=== PATIENT | female | born 1980 | race African-American/Black ===

== ENCOUNTER 2017-11-15 09:28 | Emergency (ER) | payer MEDICAID ==
[~2017-11-15] VITALS: Ht 180.3 cm; Wt 80.0 kg
[2017-11-15 09:59] VITALS: BP 141/76; PULSE 82; RESP 16; TEMP 98; O2SAT 100
[2017-11-15] MEDS ORDERED: DILA100C PO (10:05)
[2017-11-15] MEDS ORDERED: SODIUM CHLORIDE 0.9% FLUSH 10 ML FLUSH IVF PRN (10:30)
[2017-11-15 10:31] VITALS: RESP 16; O2SAT 99
--- NOTE | 2017-11-15 10:33 | PD ---
HPI Chief Complaint: Seizure Time Seen by Provider: 10:29 Travel History International Travel<30 days: No Contact w/Intl Traveler<30days: No Traveled to known affect area: No History of Present Illness HPI 37-year-old female patient with previous history of seizures, had ran out of her medications for a month and just started taking her Dilantin yesterday, was under Police Department custody when she states that she lost consciousness while sitting on the bench and had a seizure according to witnesses, had a second seizure while in the ambulance. Patient currently complains of a right- sided headache, thinks that she may have fallen down and hit her head during the seizure. She has not taken her medications this morning. She denies any other issues. Modifying Factors: None Associated Signs & Symptoms: Seizures Risk Factors: History of seizures PFSH Past Medical History Diabetes: Yes (NO MEDS) ?: Not Social History Tobacco Use: No Allergies-Medications (Allergen,Severity, Reaction): Coded Allergies: tramadol (Unverified Allergy, Mild, HIVES, 02/12/17) Reported Meds & Prescriptions Reported Meds & Active Scripts Active Reported Dilantin (Phenytoin Extended) 100 Mg Cap 100 Mg PO TID Review of Systems Except as stated in HPI: all other systems reviewed are Neg Physical Exam Narrative GENERAL: Well-developed young -[place] female patient currently in mild distress. Awake and oriented 3. SKIN: Focused skin assessment warm/dry. HEAD: Atraumatic. Normocephalic. EYES: Pupils equal and round. No scleral icterus. No injection or drainage. ENT: No nasal bleeding or discharge. Mucous membranes pink and moist. NECK: Trachea midline. No JVD. CARDIOVASCULAR: Regular rate and rhythm. No murmur appreciated. RESPIRATORY: No accessory muscle use. Clear to auscultation. Breath sounds equal bilaterally. GASTROINTESTINAL: Abdomen soft, non-tender, nondistended. Hepatic and splenic margins not palpable. MUSCULOSKELETAL: No obvious deformities. No clubbing. No cyanosis. No edema. NEUROLOGICAL: Awake and alert. No obvious cranial nerve deficits. Motor grossly within normal limits. Normal speech. PSYCHIATRIC: Appropriate mood and affect; insight and judgment normal. Data Data Last Documented VS Vital Signs Date Time Temp Pulse Resp B/P (MAP) Pulse Ox O2 Delivery O2 Flow Rate FiO2 11/15/17 10:31 16 99 Room Air 11/15/17 10:03 76 11/15/17 09:59 98.0 141/76 (97) Orders Orders Phenytoin (Dilantin) (11/15/17 10:19) Basic Metabolic Panel (Bmp) (11/15/17 10:19) Complete Blood Count With Diff (11/15/17 10:23) Basic Metabolic Panel (Bmp) (11/15/17 10:23) Phenytoin (Dilantin) (11/15/17 10:23) Blood Glucose (11/15/17 10:23) Ecg Monitoring (11/15/17 10:23) Iv Access Insert/Monitor (11/15/17 10:23) Oximetry (11/15/17 10:23) Sodium Chloride 0.9% Flush (Ns Flush) (11/15/17 10:30) Ed Urine Pregnancytest Poc (11/15/17 10:23) Ct Brain W/O Iv Contrast(Rout) (11/15/17 10:29) Urinalysis - C+S If Indicated (11/15/17 10:57) Drug Screen, Random Urine (11/15/17 10:57) Urine Culture (11/15/17 11:00) Phenytoin (Dilantin) (11/15/17 13:00) Acetaminophen (Tylenol) (11/15/17 13:15) Ed Discharge Order (11/15/17 13:02) Labs Laboratory Tests Test 11/15/17 10:15 11/15/17 11:00 White Blood Count 7.2 TH/MM3 Red Blood Count 4.82 MIL/MM3 Hemoglobin 11.0 GM/DL Hematocrit 35.6 % Mean Corpuscular Volume 73.9 FL Mean Corpuscular Hemoglobin 22.9 PG Mean Corpuscular Hemoglobin Concent 30.9 % Red Cell Distribution Width 19.6 % Platelet Count 223 TH/MM3 Mean Platelet Volume 7.8 FL Neutrophils (%) (Auto) 64.4 % Lymphocytes (%) (Auto) 27.3 % Monocytes (%) (Auto) 7.0 % Eosinophils (%) (Auto) 0.9 % Basophils (%) (Auto) 0.4 % Neutrophils # (Auto) 4.7 TH/MM3 Lymphocytes # (Auto) 2.0 TH/MM3 Monocytes # (Auto) 0.5 TH/MM3 Eosinophils # (Auto) 0.1 TH/MM3 Basophils # (Auto) 0.0 TH/MM3 CBC Comment DIFF FINAL Differential Comment Blood Urea Nitrogen 8 MG/DL Creatinine 0.66 MG/DL Random Glucose 86 MG/DL Calcium Level 8.4 MG/DL Sodium Level 140 MEQ/L Potassium Level 4.1 MEQ/L Chloride Level 110 MEQ/L Carbon Dioxide Level 18.6 MEQ/L Anion Gap 11 MEQ/L Estimat Glomerular Filtration Rate 123 ML/MIN Phenytoin (Dilantin) Level 0.8 MCG/ML Urine Color YELLOW Urine Turbidity HAZY Urine pH 7.5 Urine Specific [place] 1.016 Urine Protein 30 mg/dL Urine Glucose (UA) NEG mg/dL Urine Ketones NEG mg/dL Urine Occult Blood LARGE Urine Nitrite NEG Urine Bilirubin NEG Urine Urobilinogen LESS THAN 2.0 MG/DL Urine Leukocyte Esterase MOD Urine RBC /hpf Urine WBC /hpf Urine WBC Clumps MOD Urine Squamous Epithelial Cells 9 /hpf Urine Bacteria OCC /hpf Urine Mucus FEW /lpf Microscopic Urinalysis Comment CULTURE INDICATED Urine Opiates Screen NEG Urine Barbiturates Screen NEG Urine Amphetamines Screen NEG Urine Benzodiazepines Screen NEG Urine Cocaine Screen NEG Urine Cannabinoids Screen POS MDM Medical Decision Making Medical Screen Exam Complete: Yes Emergency Medical Condition: Yes Medical Record Reviewed: Yes Interpretation(s) Laboratory Tests Test 11/15/17 10:15 11/15/17 11:00 Hemoglobin 11.0 GM/DL (11.6-15.3) Mean Corpuscular Volume 73.9 FL (80.0-100.0) Mean Corpuscular Hemoglobin 22.9 PG (27.0-34.0) Mean Corpuscular Hemoglobin Concent 30.9 % (32.0-36.0) Red Cell Distribution Width 19.6 % (11.6-17.2) Calcium Level 8.4 MG/DL (8.5-10.1) Chloride Level 110 MEQ/L (98-107) Carbon Dioxide Level 18.6 MEQ/L (21.0-32.0) Phenytoin (Dilantin) Level 0.8 MCG/ML (10.0-20.0) Urine Turbidity HAZY (CLEAR) Urine Protein 30 mg/dL (NEG-TRACE) Urine Occult Blood LARGE (NEG) Urine Leukocyte Esterase MOD (NEG) Urine WBC Clumps MOD (NONE) Urine Bacteria OCC /hpf (NONE) Urine Mucus FEW /lpf (OCC) Urine Cannabinoids Screen POS (NEG) Last [address] 11/15/17 1029 Signed Impressions: Service Date/Time: Wednesday, November 15, 2017 12:07 - CONCLUSION: 1. No acute intracranial abnormality. Shahbaz Romano MD Differential Diagnosis Seizure, headache: Breakthrough seizures versus intracranial injuries versus electrolyte abnormalities versus medication noncompliance Narrative Course Vital signs are stable in the ER. She is alert, awake and oriented in the ER. Complaining of a headache and had been taking Aleve at home, was given Tylenol in the ER for the headaches. CT the brain did not show any signs of acute injuries. Lab work was fairly unremarkable. Her Dilantin levels are low and was given Dilantin in the ER. Patient has Dilantin at home. At this point, my plan would be to release her with follow-up to primary care doctor. Return for any worsening in symptoms as needed. The plan has been discussed with the patient and she states understanding. She also has a UTI which I plan to treat with antibiotics. Diagnosis Primary Impression: Seizure Additional Impression: UTI (urinary tract infection) Med/Other Pt SpecificInfo: Prescription(s) given Scripts Nitrofurantoin Monohydrate Macrocrystals (Macrobid) 100 Mg Cap 100 MG PO BID for Infection for 7 Days, #14 CAP 0 Refills Prov: Federica Gonzales MD 11/15/17 Disposition: 01 DISCHARGE HOME Condition: Stable Federica Gonzales MD November 15, 2017 10:33
[2017-11-15 11:03] LABS: AUTOMATED NEUTROPHIL # 4.7 TH/MM3 (1.8-7.7); BASOPHIL % 0.4 % (0.0-2.0); EOSINOPHIL # 0.1 TH/MM3 (0-0.4); EOSINOPHIL % 0.9 % (0.0-4.0); HEMATOCRIT 35.6 % (35.0-46.0); LYMPH % 27.3 % (9.0-44.0); MEAN CELL VOLUME 73.9 FL (80.0-100.0); MEAN CORPUSCULAR HEMOGLOBIN 22.9 PG (27.0-34.0); MEAN CORPUSCULAR HGB CONC 30.9 % (32.0-36.0); MEAN PLATELET VOLUME 7.8 FL (7.0-11.0); MONOCYTE # 0.5 TH/MM3 (0-0.9); NEUT % 64.4 % (16.0-70.0); PLATELET COUNT 223 TH/MM3 (150-450); RED BLOOD COUNT 4.82 MIL/MM3 (4.00-5.30); RED CELL DISTRIBUTION WIDTH 19.6 % (11.6-17.2); WHITE BLOOD COUNT 7.2 TH/MM3 (4.0-11.0)
[2017-11-15 11:10] LABS: BICARBONATE 18.6 MEQ/L (21.0-32.0); CALCIUM 8.4 MG/DL (8.5-10.1); CREATININE 0.66 MG/DL (0.50-1.00)
[2017-11-15 11:11] LABS: PHENYTOIN (DILANTIN) 0.8 MCG/ML (10.0-20.0)
[2017-11-15 11:36] LABS: BACTERIA, URINE OCC /hpf; BILIRUBIN, URINE NEG (NEG); BLOOD, URINE LARGE (NEG); GLUCOSE,URINE NEG (NEG); KETONE, URINE NEG (NEG); MUCUS URINE FEW /lpf (OCC); NITRITE,URINE NEG (NEG); PH, URINE 7.5 (5.0-8.5); SQUAMOUS EPITHELIAL CELL URINE 9 /hpf (0-5); URINE COLOR YELLOW (YELLW/STRAW); URINE LEUKOCYTE ESTERASE MOD (NEG); WHITE BLOOD CELL CLUMPS MOD
--- NOTE | 2017-11-15 12:23 | RADRPT ---
EXAM DATE/TIME: 11/15/2017 12:07 [facility] COMPARISON: No previous studies available for comparison. INDICATIONS : Witnessed seizure today/ RADIATION DOSE: 35.91 CTDIvol (mGy) MEDICAL HISTORY : Diabetes mellitus type 2. SURGICAL HISTORY : None. ENCOUNTER: Initial ACUITY: 1 day PAIN SCALE: 0/10 LOCATION: cranial TECHNIQUE: Multiple contiguous axial images were obtained of the head. Using automated exposure control and adj ustment of the mA and/or kV according to patient size, radiation dose was kept as low as reasonably a chievable to obtain optimal diagnostic quality images. DICOM format image data is available electro nically for review and comparison. FINDINGS: CEREBRUM: The ventricles are normal for age. No evidence of midline shift, mass lesion, hemorrhage or acute in farction. No extra-axial fluid collections are seen. POSTERIOR FOSSA: The cerebellum and brainstem are intact. The 4th ventricle is midline. The cerebellopontine angle i s unremarkable. EXTRACRANIAL: The visualized portion of the orbits is intact. SKULL: The calvaria is intact. No evidence of skull fracture. CONCLUSION: 1. No acute intracranial abnormality. Shahbaz Romano MD on November 15, 2017 at 12:21 Board Certified Radiologist. This report was verified electronically.
[2017-11-15] MEDS ORDERED: PHENYTOIN SODIUM 100 MG CAP PO ONE (13:00)
[2017-11-15] MEDS ORDERED: MACR100C2 PO (13:10)
[2017-11-15] MEDS ORDERED: ACETAMINOPHEN 325 MG TAB PO ONE (13:15)
== END 2017-11-15 13:43 | disposition home or self-care (01) ==
LOC: NEPC 09:28
DX: R56.9 Unspecified convulsions (principal); N39.0 Urinary tract infection, site not specified
CPT/HCPCS: 70450; 80048; 80185; 80307; 81001; 84703; 85025; 86403; 87086; 87186